=== PATIENT | male | born 1960 | race Caucasian/White ===

== ENCOUNTER 2020-06-29 13:05 | Outpatient (CLI) | payer BC, SELFPAY | END 2020-06-29 13:06 | disposition home or self-care (01) | LOC: ANHCOVIDVC 13:05 | PROVIDERS: PCP Family Medicine | DX: Z23 Encounter for immunization (principal) | CPT/HCPCS: 0001A; 91300 ==

== ENCOUNTER 2020-07-20 13:07 | Outpatient (CLI) | payer BC, SELFPAY | END 2020-07-20 13:08 | disposition home or self-care (01) | LOC: ANHCOVIDVC 13:07 | PROVIDERS: PCP Family Medicine | DX: Z23 Encounter for immunization (principal) | CPT/HCPCS: 0002A; 91300 ==

== ENCOUNTER → 2020-09-17 03:55 | Outpatient (CLI) | payer BC, SELFPAY ==
[2020-09-17 19:46] LABS: SARS-CoV-2 RNA PCR Negative
== END ==
PROVIDERS: PCP Family Medicine; Visit Provider Internal Medicine Gastroenterology
DX: Z01.812 Encounter for preprocedural laboratory examination (principal); Z20.822 Contact with and (suspected) exposure to COVID-19
CPT/HCPCS: C9803; U0003; U0005

== ENCOUNTER 2020-09-21 01:48 | Day surgery (SDC) | payer BC, SELFPAY ==
[2020-09-14 13:52] VITALS: BMI 21.2
[2020-09-21 08:51] VITALS: BP 128/80; PULSE 84; RESP 18; TEMP 36; O2SAT 99; BMI 22.9
[2020-09-21 09:24] LABS: Glucose Point of Care 218 mg/dl (65-105)
--- NOTE | 2020-09-21 09:24 | WPDANESEPPF ---
Anes - Initial Pre Proc Eval Procedure: Operation Date: 09/21/20 09:30 Proposed Procedures p Esophagogastroduodenoscopy - Pepe Rodriguez MD Date/Time: 09/21/20 09:24 Surgeon: Pepe Rodriguez MD Pre Op Diagnosis: dyshagia, esophageal obstruction Patient Data Age: 60 Gender: M Height: 6 ft 2 in Weight: 81.2 kg Last Vital Signs Temp 96.8 F L 09/21/20 08:51 Pulse 84 09/21/20 08:51 Resp 18 09/21/20 08:51 BP 128/80 09/21/20 08:51 Pulse Ox 99 09/21/20 08:51 Allergies Allergy/AdvReac Type Severity Reaction Status Date / Time No Known Allergies Allergy Verified 09/21/20 08:50 Home Medications Medication Instructions Recorded Confirmed Type insulin degludec 100 unit/mL (3 26 unit SUBCUT DAILY #15 ml 06/22/20 09/21/20 Rx mL) subcutaneous pen lisinopril 2.5 mg tablet 2.5 mg PO DAILY #90 tablet 06/23/20 09/21/20 Rx pen needle, diabetic 32 gauge x #100 ea 06/28/20 09/05/20 Rx 1/4 atorvastatin 10 mg tablet 10 mg PO QHS #90 tablet 08/08/20 09/21/20 Rx flash glucose sensor See Rx Instructions .ROUTE 08/08/20 09/21/20 Rx .COMPLEX #13 ea cyanocobalamin (vitamin B-12) 500 500 mcg PO DAILY 09/05/20 09/21/20 History mcg tablet Patient hx anesthesia problems: none Family hx anesthesia problems: none PMFSH Past Medical History Medical History (Updated 09/05/20 @ 11:25 by Lambert Su MD) Collar bone fracture (~1973) Diabetic nephropathy Mixed hyperlipidemia Neuropathy Peripheral neuropathy Surgical History Surgical History History of hip replacement (~2005) right Family History Family History Father Diabetes mellitus Cerebrovascular accident Sibling Diabetes mellitus Family history of cardiovascular disease Acute myocardial infarction Family history of kidney disease Mother Family history of cardiovascular disease Grandparent Family history of Alzheimer's disease Social History Social History Alcohol intake: current Drinks per week: 6 Living arrangements: with family Gender identity (if verbalized by the patient): Female Spiritual care concerns: No Anes - Eval Final PreProcedure Day of Procedure 09/21/20 09:24 Patient weight: normal Heart: regular rate and rhythm Lungs: clear to auscultation Airway: Mallampati scale class II Neurological: alert and oriented Last oral intake: >/= 8 hours ASA classification: III Emergent: no Anesthetic plan: proceed Anesthesia type and monitoring: general GIVS and standard monitoring Informed Consent: The patient's anesthetic plan and its attendant risks and benefits were discussed with the patient/family/POA. Questions were solicited and answers provided to the satisfaction of the patient/family/POA.
[2020-09-21] MEDS: LACTATED RINGERS 1,000 ML 150 ML IV CONT (09:25)
--- NOTE | 2020-09-21 09:46 | PM.HPGS ---
History of Present Illness History of Present Illness Consent: Risks, benefits, and alternatives have been discussed and questions answered. Patient agrees to proceed with procedure. Chief complaint: dyshagia, esophageal obstruction Narrative: Facnudo Sheikh is a 60 year old male who frequently has episodes of dysphagia. When he is swallowing his feels as though the food is going down slowly. This then results in coughing which can last for quite a while. He denies symptoms suggesting impaction of food. For instance he can take a drink of water and it will go down. His symptoms are brought on by both liquid and solid food Review of Systems Review of Systems: All systems reviewed & are unremarkable except as noted in HPI and below PMFSH Past Medical History Medical History Collar bone fracture (~1973) Diabetic nephropathy Mixed hyperlipidemia Neuropathy Peripheral neuropathy Surgical History Surgical History History of hip replacement (~2005) right Family History Family History Father Diabetes mellitus Cerebrovascular accident Sibling Diabetes mellitus Family history of cardiovascular disease Acute myocardial infarction Family history of kidney disease Mother Family history of cardiovascular disease Grandparent Family history of Alzheimer's disease Social History Social History Alcohol intake: current Drinks per week: 6 Living arrangements: with family Gender identity (if verbalized by the patient): Female Spiritual care concerns: No Meds Home Medications and Allergies Home Medications Medication Instructions Recorded Confirmed Type insulin degludec 100 unit/mL (3 26 unit SUBCUT DAILY #15 ml 06/22/20 09/21/20 Rx mL) subcutaneous pen lisinopril 2.5 mg tablet 2.5 mg PO DAILY #90 tablet 06/23/20 09/21/20 Rx pen needle, diabetic 32 gauge x #100 ea 06/28/20 09/05/20 Rx 1/4 atorvastatin 10 mg tablet 10 mg PO QHS #90 tablet 08/08/20 09/21/20 Rx flash glucose sensor See Rx Instructions .ROUTE 08/08/20 09/21/20 Rx .COMPLEX #13 ea cyanocobalamin (vitamin B-12) 500 500 mcg PO DAILY 09/05/20 09/21/20 History mcg tablet Allergies Allergy/AdvReac Type Severity Reaction Status Date / Time No Known Allergies Allergy Verified 09/21/20 08:50 Vital Signs Vital Signs - 24 hr 09/21/20 08:51 Temperature 36.0 C L Pulse Rate 84 Respiratory Rate 18 Blood Pressure 128/80 Pulse Oximetry 99 Exam Const: General: alert Orientation/consciousness: patient oriented x3 Resp: Auscultation: clear to auscultation bilaterally Cardio: Rhythm: regular rhythm GI: GI Palp: Yes Soft to palpation and No Tenderness to palpation present (GI) Neuro: General: patient oriented x3 Assessment and Plan Assessment and plan (1) Dysphagia: Code(s): R13.10 - Dysphagia, unspecified Status: Acute Assessment and Plan: EGD with possible biopsy or dilatation or cautery.
[2020-09-21 10:30] VITALS: BP 112/68; PULSE 84; RESP 18; O2SAT 98
[2020-09-21 10:40] VITALS: BP 114/76; PULSE 82; RESP 18; O2SAT 92
[2020-09-21 10:49] LABS: Glucose Point of Care 211 mg/dl (65-105)
[2020-09-21 10:50] VITALS: BP 132/86; PULSE 81; RESP 18; O2SAT 92
== END 2020-09-21 11:03 | disposition home or self-care (01) ==
PROVIDERS: PCP Family Medicine; Visit Provider Internal Medicine Gastroenterology
PROC: 0DJ08ZZ Inspection of Upper Intestinal Tract, Via Natural or Artificial Opening Endoscopic (ICD-10-PCS; CPT 43235; principal; 2020-09-21 09:30)
DX: K22.2 Esophageal obstruction (principal); K20.90 Esophagitis, unspecified without bleeding; E11.21 Type 2 diabetes mellitus with diabetic nephropathy; E78.2 Mixed hyperlipidemia; E11.42 Type 2 diabetes mellitus with diabetic polyneuropathy; Z79.4 Long term (current) use of insulin
CPT/HCPCS: 43239; 43249; 82948; 87081; 88305; C1726; J2704; J7120

== ENCOUNTER 2020-10-09 10:59 | Emergency (ER) | payer BC, SELFPAY ==
--- NOTE | ~2020-10-09 | XR_ITS ---
EXAMINATION: XR chest 2V DATE: 10/09/2020 11:42 INDICATION: Dry cough TECHNIQUE: PA and lateral views of the chest are obtained. COMPARISON: 05/25/2018 FINDINGS: There are subtle airspace opacities of the right lower lobe. There is no pleural effusion o r pneumothorax. The cardiomediastinal silhouette is normal. There is mild thoracic spondylosis. IMPRESSION: 1. Subtle airspace opacities of the right lower lobe, consistent with atelectasis versus pneumonia. Reviewed, dictated and finalized at location A. IMPRESSION: 1. Subtle airspace opacities of the right lower lobe, consistent with atelectas is versus pneumonia.
[2020-10-09 11:07] VITALS: BP 148/86; PULSE 80; RESP 16; TEMP 36.4; O2SAT 100
--- NOTE | 2020-10-09 11:24 | ED.GENADULT ---
HPI - General Adult General Chief complaint: Upper Respiratory Infection Stated complaint: cough Time Seen by Provider: 10/09/20 11:24 Source: patient and RN notes reviewed Mode of arrival: ambulatory Limitations: no limitations History of Present Illness HPI narrative: 60-year-old male presents with complaints of dry cough for the past 14 days. Facundo reports constant cough increasing daily after having an endoscopy done approximately 2 weeks ago. Cold and cough tablets without relief. ?Constant dry cough without chest congestion. No rhinorrhea or nasal congestion. ?Denies sore throat. ?No high fevers, drooling, neck or throat swelling. ?No chest pain, wheezing, or shortness of breath. No exacerbation factors. Denies nausea, vomiting, and abdominal pain. ?Tolerating liquids well. Remains active. ?The patient reports he has not been diagnosed with COVID-19. The patient reports he received 2 [employer] COVID-19 vaccines. The patient reports he is not waiting for the results of a COVID-19 lab test. The patient reports he does not have chills, weakness, or fatigue. ?The patient reports he does not have a worsening cough. The patient reports he does not have any loss of taste or smell and diarrhea. ?Denies recent traveling. ?Denies concerns for COVID-19 or exposures. ?At this time, the patient is not suspected of having COVID-19. Some parts of this dictation were generated by voice recognition software and may contain typographical and/or grammatical inaccuracies. Related Data Home Medications Medication Instructions Recorded Confirmed cyanocobalamin (vitamin B-12) 500 500 mcg PO DAILY 09/05/20 10/09/20 mcg tablet Allergies Allergy/AdvReac Type Severity Reaction Status Date / Time No Known Allergies Allergy Verified 09/21/20 08:50 Review of Systems Review of Systems: Narrative: CONSTITUTIONAL: Denies fever, chills, sweats. EYES: Denies visual changes, redness, discharge. ENT: Denies rhinorrhea, congestion, sore throat, otalgia. CARDIOVASCULAR: Denies chest pain, palpitations, edema. RESPIRATORY: Denies dyspnea, wheezing. Complaints of constant dry cough. GASTROINTESTINAL: Denies abdominal pain, nausea, vomiting, diarrhea. SKIN: Denies rash or itching. MUSCULOSKELETAL: Denies acute back pain, joint pain, or myalgia. NEUROLOGIC: Denies numbness or focal weakness. PSYCHIATRIC: Denies anxiety or depression. All systems reviewed & are unremarkable except as noted in HPI and below. [facility] Past Medical History Medical History Collar bone fracture (~1973) Diabetic nephropathy History of esophageal dilatation Mixed hyperlipidemia Neuropathy Peripheral neuropathy Schatzki's ring of distal esophagus Surgical History Surgical History History of esophagogastroduodenoscopy History of hip replacement (~2005) right Family History Family History Father Diabetes mellitus Cerebrovascular accident Sibling Diabetes mellitus Family history of cardiovascular disease Acute myocardial infarction Family history of kidney disease Mother Family history of cardiovascular disease Grandparent Family history of Alzheimer's disease Social History Social History (Updated 10/09/20 @ 11:34 by PITO Whyte) Smoking status: Never smoker Tobacco type: cigarettes Second hand tobacco smoke exposure: No Alcohol intake: current Drinks per week: 6 Substance use: never Living arrangements: with family Occupation/Education: occupation Gender identity (if verbalized by the patient): Male Sexual Orientation (if Verbalized by the Patient): Straight or Heterosexual Spiritual care concerns: No Comments At time of signature, agree with the nurse past medical, surgical, social, and family history. There is no relevant family histor
== END 2020-10-09 12:23 | disposition home or self-care (01) ==
PROVIDERS: Emergency Provider Nurse Practitioner Family; PCP Family Medicine
DX: J18.1 Lobar pneumonia, unspecified organism (principal); E78.2 Mixed hyperlipidemia; E11.21 Type 2 diabetes mellitus with diabetic nephropathy; E11.42 Type 2 diabetes mellitus with diabetic polyneuropathy; Z96.641 Presence of right artificial hip joint
CPT/HCPCS: 71046; 99213; G0463

== ENCOUNTER 2021-06-21 14:24 | Outpatient (CLI) | payer BC, SELFPAY ==
--- NOTE | ~2021-06-21 | MR_ITS ---
EXAMINATION: MR cervical spine wo con DATE: 06/21/2021 16:09 INDICATION: Other specified diseases of spinal cord. Bilateral hand tingling and numbness. TECHNIQUE: Magnetic resonance imaging (MRI) of the cervical spine was performed without intravenous c ontrast. Sequences included sagittal T2-weighted FSE, sagittal STIR FSE, sagittal T1-weighted FSE, ax ial MERGE, and axial T2-weighted FSE. COMPARISON: Cervical spine MRI 07/08/2018 FINDINGS: There is 2 mm additional listhesis of C5 on C6. There is 7 degrees levocurvature of cervica l spine. There is a chronic compression fracture of T3 with 1/5 loss of height. There is severely dec reased disc height at C5-C6 and C6-C7 with endplate remodeling. There is increased T2-weighted signal intensity in the spinal cord at C5-C6, consistent with myelomalacia. The following disc levels are s pecifically discussed: C2-C3: The disc does not extend beyond the endplate margin. There is no uncovertebral joint osteoarth ritis. There is no facet joint osteoarthritis. There is no neural foraminal stenosis. There is no darshan tral canal stenosis. C3-C4: There is a central protrusion. There is no uncovertebral joint osteoarthritis. There is no fac et joint osteoarthritis. There is no neural foraminal stenosis. There is no central canal stenosis. C4-C5: There is a central protrusion. There is mild right uncovertebral joint osteoarthritis. There i s no facet joint osteoarthritis. There is mild right neural foraminal stenosis. There is mild central canal stenosis. C5-C6: The disc is bulging. There is severe bilateral uncovertebral joint osteoarthritis. There is mi ld bilateral facet joint osteoarthritis. There is moderate bilateral neural foraminal stenosis. There is severe central canal stenosis. C6-C7: The disc is bulging. There is severe bilateral uncovertebral joint osteoarthritis. There is se peace bilateral facet joint osteoarthritis. There is moderate bilateral neural foraminal stenosis. The re is moderate central canal stenosis. C7-T1: The disc does not extend beyond the endplate margin. There is no uncovertebral joint osteoarth ritis. There is mild bilateral facet joint osteoarthritis. There is no neural foraminal stenosis. The re is no central canal stenosis. IMPRESSION: 1. Myelomalacia at C5-C6 again seen. 2. Severe cervical spondylosis, stable from 07/08/2018. Reviewed, dictated and finalized at location A. CH LANGUAGE PATHOLOGY ASSISTANT
--- NOTE | ~2021-06-21 | MR_ITS ---
EXAMINATION: MR brain/brain stem wo con DATE: 06/21/2021 15:55 INDICATION: Bilateral hand tingling and numbness. Repeated falls. Other specified diseases of spinal cord. Dizziness. TECHNIQUE: Magnetic resonance imaging (MRI) of the brain and brainstem was performed without intraven ous contrast. Sequences included sagittal and axial T1-weighted FSE, axial diffusion-weighted FS EPI, axial T2*-weighted GRE, axial T2-weighted FLAIR Propeller, and axial T2-weighted Propeller. Apparent diffusion coefficient (ADC) maps were created. COMPARISON: Brain MRI 05/26/2018, head CT 05/25/2018 FINDINGS: There are scattered areas of nonspecific increased T2-weighted signal intensity in the cere bral white matter, which is within normal limits for the patient's age. There is no intracranial hemo rrhage, acute infarction, or abnormal intracranial mass lesion. The ventricles are normal in size. Th ere is mild mucosal thickening in the paranasal sinuses. The orbits are normal. The mastoid air cells are normal. IMPRESSION: 1. Normal brain. Reviewed, dictated and finalized at location A. RITY BUSINESS ANALYST IMPRESSION: 1. Normal brain.
== END 2021-06-21 14:25 ==
LOC: MICIMG 14:25
PROVIDERS: PCP Family Medicine; Visit Provider Family Medicine
DX: R29.6 Repeated falls (principal); G95.89 Other specified diseases of spinal cord; R29.898 Other symptoms and signs involving the musculoskeletal system; M47.812 Spondylosis without myelopathy or radiculopathy, cervical region
CPT/HCPCS: 70551; 72141

== ENCOUNTER → 2021-10-12 07:39 | Outpatient (CLI) | payer BC, SELFPAY ==
--- NOTE | ~2021-10-12 | XR_ITS ---
XR_[id number]_CR DATE: 10/12/2021 07:53 INDICATION: Postoperative visit; cervical stenosis TECHNIQUE: AP, lateral and swimmer views COMPARISON: 06/21/2021 MR cervical spine FINDINGS: Status post anterior and interbody surgical fusion at C5-7. There is osteopenia. There is approximately 17 degrees levoscoliosis measured from C3 to T4. Normal alignment of the cervical spine. No fracture or dislocation or locked facet or prevertebral so ft tissue swelling is detected. C2-3, C5-3-4 and C4-5 interspaces are well preserved. IMPRESSION: Status post anterior and interbody spinal fusion at C-7 Approximately 17 degrees levoscoliosis from C3 to T4 Osteopenia Reviewed, dictated and finalized at Location A. Reviewed, dictated and finalized at location A.
== END ==
PROVIDERS: PCP Family Medicine
DX: Z48.89 Encounter for other specified surgical aftercare (principal); M48.02 Spinal stenosis, cervical region; Z98.1 Arthrodesis status; M41.82 Other forms of scoliosis, cervical region; M85.88 Other specified disorders of bone density and structure, other site
CPT/HCPCS: 72040

== ENCOUNTER → 2023-05-15 13:36 | Outpatient (CLI) | payer BC, SELFPAY ==
--- NOTE | ~2023-05-15 | XR_ITS ---
AP and lateral views of the right femur Clinical History: Pain Findings: No acute fracture or dislocation is seen. Right hip arthroplasty in place. No hardware comp lication seen. Joint spaces of the right knee are intact. Soft tissues are unremarkable. Impression: No acute abnormality. Right hip arthroplasty in place. Reviewed, dictated and finalized at location . WASH SUPERVISOR Impression: No acute abnormality. Right hip arthroplasty in place.
--- NOTE | ~2023-05-15 | XR_ITS ---
AP view of the pelvis and AP and lateral views of the right hip Clinical history: Pain Findings: No acute fracture or dislocation is seen. Right hip arthroplasty in place. No hardware comp lication seen. Left hip joint space is preserved. Soft tissues are unremarkable. Impression: No acute abnormality. Right hip arthroplasty in place. Reviewed, dictated and finalized at location . OR TAX MANAGER Impression: No acute abnormality. Right hip arthroplasty in place.
== END ==
PROVIDERS: PCP Family Medicine; Visit Provider Family Medicine
DX: S79.911A Unspecified injury of right hip, initial encounter (principal); Z96.641 Presence of right artificial hip joint
CPT/HCPCS: 73502; 73552

== ENCOUNTER 2024-03-25 06:33 | Emergency (ER) | payer BC, SELFPAY ==
[2024-03-25] VITALS (13 sets, daily range): BP systolic 149–172; BP diastolic 97–108; PULSE 95–105; RESP 13–18; TEMP 36.6; O2SAT 90–98
--- NOTE | ~2024-03-25 | CT_ITS ---
CT of the Abdomen and Pelvis: Indication: Abdominal pain Technique: 2.5 mm axial scans were obtained through the abdomen and pelvis following intravenous adm inistration of 100 cc of Omnipaque 350. Dose reduction technique was used on this scan by utilizing a utomated exposure control and iterative reconstruction technique. The dose-length product (DLP) was 3 39.89 mGy-cm. Findings: Scans through the lung bases are unremarkable. The liver, spleen, pancreas, gallbladder, adrenals and kidneys are within normal limits.. There are a therosclerotic calcifications of the aorta. No lymphadenopathy. No bowel obstruction or bowel wall thickening. There is no evidence to suggest acute appendicitis. Images through the pelvis were performed. Urinary bladder unremarkable. No pelvic mass seen. No ascit es. Right hip arthroplasty noted. Impression: No acute abnormalities seen. Reviewed, dictated and finalized at [facility]. TEACHER Impression: No acute abnormalities seen.
[2024-03-25 06:45] LABS: Glucose Point of Care 252 mg/dl (65-105)
--- NOTE | 2024-03-25 06:52 | ECG_ITS ---
Test Date: 2024-03-25 06:59:07 Measurements Intervals [place] Rate: 93 P: 21 MO: 178 QRS: -21 QRSD: 84 T: -15 QT: 362 QTc: 452 Interpretive Statements SINUS RHYTHM INFERIOR MYOCARDIAL INFARCTION , OF INDETERMINATE AGE [40+ ms Q WAVE AND/OR ST/T ABNORMALITY IN II/aVF] ABNORMAL ECG No previous ECG available for comparison Electronically Signed On 03-25-2024 10:58:54 ESCROW AGENT by Anupam Hernandez M.D.
[2024-03-25 06:59] LABS: Basophils Percent Auto 0.1 % (0.2-1.2); Eosinophils Percent Auto 0.1 % (0-4.4); Hematocrit 42.6 % (42.0-52.0); Immature Granulocyte Absolute 0.03 K/mm3 (0.00-0.031); Immature Granulocyte Percent A 0.3 % (0-0.5); Lymphocytes Absolute Auto 2.13 K/mm3 (0.9-3.2); Lymphocytes Percent Auto 23.4 % (18.3-44.2); Mean Corpuscular HGB Conc 32.9 g/dl (32-36); Mean Corpuscular Hemoglobin 31.7 pg (26-34); Mean Corpuscular Volume 96.6 fl (80-100); Monocytes Absolute Auto 0.9 K/mm3 (0.1-0.6); Monocytes Percent Auto 10.1 % (2.6-8.5); Platelet Count Result 219 k/mm3 (150-375); Red Blood Count 4.41 M/mm3 (4.6-6.20); Red Cell Distribution Width 12.1 % (11.5-14.5); White Blood Count 9.1 K/mm3 (4.5-10.0)
[2024-03-25] MEDS: SODIUM CHLORIDE 0.9% IV 1,000 ML 999 ML IV CONT ×2 (07:02→09:03)
[2024-03-25 07:11] LABS: Alanine Aminotransferase 24 U/L (6-50); Albumin Level 4.6 g/dL (3.5-5.1); Alkaline Phosphatase 95 U/L (38-126); Anion Gap 7 mmol/L (4-12); Aspartate Amino Transferase 58 U/L (17-59); Bilirubin,Total 0.8 mg/dL (0.2-1.3); Blood Urea Nitrogen 47 mg/dL (9-20); Carbon Dioxide 31 mmol/L (22-30); Chloride 97 mmol/L (98-107); Estimated CRCL calculation 52 ml/min; Estimated Glomerular Filt Rate 47; Glucose 271 mg/dL (65-110); Lipase 77 U/L (23-300); Potassium 4.6 mmol/L (3.4-5.0); Sodium 135 mmol/L (137-145)
--- NOTE | 2024-03-25 07:15 | ED.GENADULT ---
HPI - General Adult General Chief complaint: Abdominal Pain Stated complaint: N/V and ABD pain for 3 days Time Seen by Provider: 03/25/24 06:52 History of Present Illness HPI narrative: 63-year-old male present to the emergency department for evaluation for persistent nausea and vomiting that is been going on since Saturday. Patient reports symptoms started on Saturday but yesterday he only had an episode of emesis but patient does report persistent decreased p.o. intake. Patient denies any significant abdominal pain but does report abdominal cramping. Patient denies any prior history of GI bleed. Patient does report a history of frequent alcohol consumption but denies any prior history of alcohol withdrawal. Patient denies any history of urinary retention Related Data Home Medications Medication Instructions Recorded Confirmed cyanocobalamin (vitamin B-12) 500 500 mcg PO DAILY 09/05/20 12/08/21 mcg tablet Allergies Allergy/AdvReac Type Severity Reaction Status Date / Time No Known Allergies Allergy Verified 03/25/24 06:33 Review of Systems Review of Systems: All systems reviewed & are unremarkable except as noted in HPI and below PMFSH Past Medical History Medical History Collar bone fracture (~1973) Diabetic nephropathy History of esophageal dilatation Mixed hyperlipidemia Neuropathy Peripheral neuropathy Schatzki's ring of distal esophagus [place] syncope Surgical History Surgical History History of esophagogastroduodenoscopy History of hip replacement (~2005) right S/P cervical spinal fusion Family History Family History Father Diabetes mellitus Cerebrovascular accident Sibling Diabetes mellitus Family history of cardiovascular disease Acute myocardial infarction Family history of kidney disease Mother Family history of cardiovascular disease Grandparent Family history of Alzheimer's disease Social History Social History Smoking status: Former smoker Second hand tobacco smoke exposure: No Alcohol intake: current Drinks per week: 6 Substance use: never Substance use type: does not use Lack of Transportation: No Lack of Food: Never True Current Housing: I Have Housing Concerned About Future Housing: No Difficulty Paying Gas/Electric Bills: No Difficulty Paying for Meds: No Currently Unemployed: No Education: High School Diploma/GED Difficulty w/ Childcare or Family Care: No Living arrangements: with family Occupation/Education: occupation Gender identity (if verbalized by the patient): Male Sexual Orientation (if Verbalized by the Patient): Straight or Heterosexual Spiritual care concerns: No Agree to blood products: Yes Exam Narrative: APPEARANCE: Well appearing, no pain, no distress, well-nourished. HEAD: normocephalic, atraumatic. EYES: PERRLA/EOMI, conjunctivae clear. NOSE: Normal no drainage EARS:TMS clear with good light reflex. THROAT: Pharynx clear, no exudate. NECK: Supple. No adenopathy, no masses. RESPIRATORY: Airway patent, respirations nonlabored. Clear to auscultation bilaterally, no rales, rhonchi, wheezing. CARDIOVASCULAR: Regular rate and rhythm without murmurs rubs or gallops. ABDOMINAL: Soft, nontender, nondistended, normal bowel sounds MUSCULOSKELETAL: Moves all extremities. Strength/ROM intact, No edema, No calf tenderness. NEURO: Alert. Cranial nerves II through XII intact. Grossly intact SKIN: Warm, dry. Normal Color Course Vital Signs Vital signs: Vital Signs Temperature 97.9 F 03/25/24 06:43 Pulse Rate 95 03/25/24 06:43 Respiratory Rate 16 03/25/24 06:43 Blood Pressure 172/108 H 03/25/24 06:43 Pulse Oximetry 98 03/25/24 06:43 Oxygen Delivery Room Air 03/25/24 06:43 Temperature 97.9 F 03/25/24 06:43 Pulse Rate 103 H 03/25/24 11:31 Respiratory Rate 18 03/25/24 11:31 Blood Pressure 161/98 H 03/25/24 11:31 Pulse Oximetry 94 03/25/24 11:31 Oxygen Delivery Room Air 03/25/24 06:43 Medical Decision Making MDM Narrative Medical decision making narrative: 63 old male presents emergency department for evaluation for nausea vomiting, decreased p.o. intake and generalized weakness. Patient is afebrile with no leukocytosis hemoglobin of 14. Patient did have an elevated creatinine of 1.5 which is higher than his typical baseline. No other significant abnormalities on the CMP UA was negative for infection. CT scan showed no acute abdominal abnormalities. Patient had greater than 500 mL of retained urine his bladder scan. Wayne was placed and UA was negative for infection. Patient prefers not to have the Wayne catheter at time of discharge. Differential Diagnosis Differential Diagnosis: Colitis, diverticulitis, gastritis, dehydration, appendicitis, urinary retention, urinary tract infection Vital Signs Vital Signs: Vital Signs Temperature 97.9 F 03/25/24 06:43 Pulse Rate 95 03/25/24 06:43 Respiratory Rate 16 03/25/24 06:43 Blood Pressure 172/108 H 03/25/24 06:43 Pulse Oximetry 98 03/25/24 06:43 Oxygen Delivery Room Air 03/25/24 06:43 Temperature 97.9 F 03/25/24 06:43 Pulse Rate 103 H 03/25/24 11:31 Respiratory Rate 18 03/25/24 11:31 Blood Pressure 161/98 H 03/25/24 11:31 Pulse Oximetry 94 03/25/24 11:31 Oxygen Delivery Room Air 03/25/24 06:43 Lab Data Lab results reviewed: Yes I reviewed the patient's lab results. 03/25/24 06:51 03/25/24 06:51 Labs: Lab Results 03/25/24 03/25/24 03/25/24 Range/Units 06:42 06:51 09:02 WBC 9.1 (4.5-10.0) K/mm3 RBC 4.41 L (4.6-6.20) M/mm3 Hgb 14.0 (14.0-18.0) g/dL Hct 42.6 (42.0-52.0) % MCV 96.6 (80-100) fl MCH 31.7 (26-34) pg MCHC 32.9 (32-36) g/dl RDW 12.1 (11.5-14.5) % Plt Count 219 (150-375) k/mm3 MPV 10.0 (7.4-10.4) fl Immature Gran % (Auto) 0.3 (0-0.5) % Neut % (Auto) 66.0 (45.5-73.1) % Lymph % (Auto) 23.4 (18.3-44.2) % [place] % (Auto) 10.1 H (2.6-8.5) % Eos % (Auto) 0.1 (0-4.4) % Baso % (Auto) 0.1 L (0.2-1.2) % Lymph # (Auto) 2.13 (0.9-3.2) K/mm3 [place] # (Auto) 0.9 H (0.1-0.6) K/mm3 Eos # (Auto) 0.0 (0-0.3) K/mm3 Baso # (Auto) 0.0 (0.0-0.1) K/mm3 Abs Immat Gran (auto) 0.03 (0.00-0.031) K/mm3 Absolute Neuts (auto) 6.0 (1.3-6.7) K/mm3 Absolute Nucleated RBC 0.000 (0.0-0.012) K/mm3 Nucleated RBC % 0.0 (0.0-0.2) % Sodium 135 L (137-145) mmol/L Potassium 4.6 (3.4-5.0) mmol/L Chloride 97 L (98-107) mmol/L Carbon Dioxide 31 H (22-30) mmol/L Anion Gap 7 (4-12) mmol/L BUN 47 H (9-20) mg/dL Creatinine 1.50 H (0.7-1.3) mg/dL Estim Creat Clear Calc 52 ml/min Estimated GFR 47 L (59 - ) Glucose 271 H (65-110) mg/dL POC Capillary Glucose 252 H (65-105) mg/dl Calcium 10.0 (8.4-10.2) mg/dL Total Bilirubin 0.8 (0.2-1.3) mg/dL AST 58 (17-59) U/L ALT 24 (6-50) U/L Alkaline Phosphatase 95 (38-126) U/L Total Protein 8.0 (6.3-8.2) g/dL Albumin 4.6 (3.5-5.1) g/dL Lipase 77 (23-300) U/L Urine Color Yellow (Yellow) Urine Appearance Clear (Clear) Urine pH 5.0 (5.0-9.0) Ur Specific [place] 1.038 H (1.001-1.035) Urine Protein 2+ H (Negative) mg/dL Urine Glucose (UA) 3+ H (Negative) mg/dL Urine Ketones 2+ H (Negative) mg/dL Ur Blood (Man) 1+ H (Negative) Urine Nitrate Negative (Negative) Urine Bilirubin Negative (Negative) Urine Urobilinogen 0.2 (<2.0) mg/dL Leukocyte Esterase Rfl Negative (Negative) SIERRA/UL Urine RBC 6-10 H (0-2) /hpf Urine WBC 0-5 (0-3) /hpf Ur Squamous Epith Cells None seen (Few) /hpf Urine Bacteria None seen /hpf Urine Casts 0-2 Imaging Data Radiologist's impression: Impressions Abdomen/Pelvis CT 03/25/24 07:46 Impression: No acute abnormalities seen. ECG Data EKG #1: EKG Interpretation: normal rate, sinus rhythm, no ectopy, non-specific ST changes, normal QRS, normal QT and NL axis Discharge Plan Discharge Clinical Impression: Nausea & vomiting Patient Disposition: Home, Self-Care Condition: Stable Instructions: Antibiotic Form, Clear Liquid Diet (ED), Abdominal Pain (ED) Additional Instructions: Zofran as needed for nausea control. Clear liquid diet for the next 1-3 days. Advance to bland diet as tolerated. Have close follow-up with your primary care physician. Also recommend close follow-up with urology regarding your urinary retention. If you have any worsening symptoms then please call or return to the emergency Prescriptions: New ondansetron 4 mg tablet,disintegrating 4 mg PO Q8H PRN (Reason: nausea and vomiting) Qty: 14 0RF No Action cyanocobalamin (vitamin B-12) 500 mcg tablet 500 mcg PO DAILY Trelegy Ellipta 100-62.5-25 mcg blister with device 1 inh inhalation DAILY Qty: 60 5RF atorvastatin 10 mg tablet 10 mg PO QHS Qty: 90 3RF insulin lispro [Humalog KwikPen Insulin] 100 unit/mL insulin pen 5 unit subcut .ac Qty: 15 3RF (DME) pen needle, diabetic [Novofine 32] 32 gauge x 1/4 needle See Rx Instructions .ROUTE .MEDSUPPLY Qty: 100 3RF Rx Instructions: As directed pen needle, diabetic [BD Ultra-Fine Sabine Pen Needle] 32 gauge x 5/32 needle See Rx Instructions miscellaneous .COMPLEX Qty: 100 0RF Rx Instructions: as directed; FreeStyle Rodriguez 14 Day Sensor Kit See Rx Instructions .ROUTE .COMPLEX Qty: 13 3RF Dose Instruction: USE 1 SENSOR EVERY 14 DAYS TO CHECK BLOOD SUGAR Rx Instructions: USE 1 SENSOR EVERY 14 DAYS TO CHECK BLOOD SUGAR Tresiba FlexTouch U-100 100 unit/mL (3 mL) insulin pen 28 unit subcut DAILY 90 Days Qty: 25.2 3RF Jardiance 10 mg tablet See Rx Instructions .ROUTE .COMPLEX Qty: 90 1RF Dose Instruction: TAKE 1 TABLET DAILY Rx Instructions: TAKE 1 TABLET DAILY omeprazole 40 mg capsule,delayed release(DR/EC) See Rx Instructions .ROUTE .COMPLEX Qty: 90 1RF Dose Instruction: TAKE 1 CAPSULE BY MOUTH DAILY Rx Instructions: TAKE 1 CAPSULE BY MOUTH DAILY lisinopril 2.5 mg tablet 2.5 mg PO DAILY Qty: 90 3RF ondansetron 4 mg tablet,disintegrating 4 mg PO Q8H PRN (Reason: nausea and vomiting) Qty: 20 0RF Follow-up/Referrals: Lambert Su MD [Primary Care Provider] -
[2024-03-25] MEDS: METOCLOPRAMIDE HCL INJ 10 MG/2 ML VIAL IV PUSH (07:19)
[2024-03-25 09:13] LABS: Add Urine Microscopic? YES; Appearance Urine Clear (Clear); Bacteria Urine None Seen /hpf; Bilirubin Urine Negative (Negative); Blood Urine 1+ (Negative); Color Urine Yellow (Yellow); Glucose Urine UA 3+ mg/dL (Negative); Ketones Urine 2+ mg/dL (Negative); Leukocyte Esterase Ur Negative LEU/UL (Negative); Nitrate Urine Negative (Negative); Non Pathogenic Casts 0-2; Protein Urine 2+ mg/dL (Negative); Specific Grav Ur 1.038 (1.001-1.035); Squamous Epithelial Cell Urine None Seen /hpf (Few); Urobilinogen Urine 0.2 mg/dL (<2.0); WBC Urine 0-5 /hpf (0-3)
[2024-03-25] MEDS: ONDANSETRON INJ 4 MG/2 ML VIAL IV PUSH (10:35)
[2024-03-25] MEDS: FAMOTIDINE 20 MG/2 ML VIAL IV PUSH (10:35)
[2024-03-25] MEDS: PANTOPRAZOLE SODIUM IV 40 MG VIAL IV PUSH (10:35)
== END 2024-03-25 12:11 | disposition home or self-care (01) ==
PROVIDERS: Emergency Medicine; Emergency Provider Emergency Medicine; PCP Family Medicine
DX: R11.2 Nausea with vomiting, unspecified (principal); E78.2 Mixed hyperlipidemia; E11.42 Type 2 diabetes mellitus with diabetic polyneuropathy; E11.21 Type 2 diabetes mellitus with diabetic nephropathy; Z96.641 Presence of right artificial hip joint; Z98.1 Arthrodesis status; Z87.891 Personal history of nicotine dependence; R94.31 Abnormal electrocardiogram [ECG] [EKG]; Z79.4 Long term (current) use of insulin; Z79.84 Long term (current) use of oral hypoglycemic drugs; Z79.899 Other long term (current) drug therapy
CPT/HCPCS: 36415; 51702; 74177; 80053; 81001; 82948; 83690; 85025; 93005; 96361; 96374; 96375; 99284; J2405; J2470; J2765; J7030; Q9967

== ENCOUNTER 2024-11-11 12:54 | Outpatient (CLI) | payer MEDICARE, SELFPAY ==
--- OUTSIDE RECORDS SUMMARY | 2024-11-11 13:01 | XMS_ITS | Clinical Summary ---
Author Organization [facility] Address [address] [place] [address] Phone Care Team Providers Care Handle Attacher Name Role Phone Lambert Su MD Primary Care Provider [phone] Allergies No known active allergies Medications atorvastatin (LIPITOR) 10 mg tablet Take 10 mg by mouth daily. Active lisinopriL (PRINIVIL) 2.5 mg tablet Take 2.5 mg by mouth daily. AM Active cyanocobalamin 1,000 mcg Tablet Take 1,000 mcg by mouth daily. Active fluticasone-ume clidinium-vilan terol (TRELEGY ELLIPTA) 100-62.5-25 mcg Disk with Device Take 1 Puff by inhalation daily. Active empagliflozin (JARDIANCE) 10 mg tablet Take 1 Tablet by mouth daily in the morning. Active insulin degludec (TRESIBA) 100 unit/mL pen syringe Inject 28 Units by subcutaneous injection 1 time daily as needed. AM Active omeprazole (PriLOSEC) 20 mg Capsule, Delayed Release(E.C.) Take 20 mg by mouth daily. AM Active HYDROcodone-eligio taminophen (NORCO) 5-325 mg tabletIndicatio ns:Neck pain Take 1 Tablet by mouth every 4 hours as needed for Pain, Moderate. Max Daily Amount: 6 Tablets 30 Tablet 2 Active Active Problems Problem Noted Date Diagnosed Date Cervical stenosis of spinal canal 08/17/2021 Family History Medical History Relation Name Comments Diabetes Brother Heart Disease Brother Hypertension Brother Diabetes Father No Known Problems Maternal Grandfather No Known Problems Maternal Grandmother Blood Clots Mother Heart Disease Mother Hypertension Mother Other Other 1 Aunt Smoker Other Other 2 Uncle Smoker No Known Problems Paternal Grandfather No Known Problems Paternal Grandmother Other Sister Smoker Relation Name Status Comments Brother Father Maternal Grandfather Maternal Grandmother Mother Other 1 Aunt Alive Other 2 Uncle Alive Paternal Grandfather Paternal Grandmother Sister Social History Tobacco Use Types Packs/Day Years Used Date Smoking Tobacco: Never Smokeless Tobacco: Never Alcohol Use Standard Drinks/Week Comments Yes 0 (1 standard drink = 0.6 oz pur e alcohol) few times a month Sex and Gender Information Value Date Recorded Sex Assigned at Not on file Legal Sex Male 2:28 PM [employer] Gender Identity Not on file Sexual Orientation Not on file Last Filed Vital Signs Vital Sign Reading Time Taken Comments Blood Pressure 139/86 10/17/2021 10:02 AM CDT Pulse 82 10/17/2021 10:02 AM CDT Temperature 36.8 C (98.2 F) 10/17/2021 10:02 AM CDT Respiratory Rate 16 08/17/2021 5:48 PM CDT Oxygen Saturation 98% 08/18/2021 8:59 AM CDT Inhaled Oxygen Concentration - - Weight 79.8 kg (176 lb) 10/17/2021 10:02 AM CDT Height 182.9 cm (6') 10/17/2021 10:02 AM CDT Body Mass Index 23.87 10/17/2021 10:02 AM CDT Plan of Treatment Health Maintenance Due Date Last Done Comments DTAP/TDAP/TD VACCINES (1 - Tdap) 1978 COLORECTAL SCREENING 2004 Colorectal Cancer Screening 2004 FIT-DNA Q 3 years 2004 FIT/FOBT Q 1 year 2004 Flex Sig/CT Colonography Q 5 years 2004 PNEUMOCOCCAL VACCINE 50+ YEARS (1 of 1 - PCV) 04/05/20 09 ZOSTER VACCINE (1 of 2) 2009 RSV VACCINE (60+ or ) (1 - Risk 60-74 years 1-dose series) 2019 INFLUENZA VACCINE (#1) 2024 Medical Devices Implanted Type Area Copy Editor Device Identifier Shelf Expiration Date Model / Serial / Lot Hemostatic Surgiflo 8ml W/ Thrombin 2994 - [id number] Implanted:Qty : 1 on 08/17/2021 by Fitz Fritz MD at [facility] Hemostatic N/A: Spine Cervical Anterior [employer] [id number] 10/19/2022 2994 / / [id number] [place] Plate 44mm Implanted:Qty : 1 on 08/17/2021 by Fitz Fritz MD at [facility] Plate N/A: Spine Cervical Anterior [employer] [id number] / / Description:load # 115 Jul 222021 BOTH NUVASIVE COMPONETS ON REQUISITION# [id number] Screw [place] Mini 4.0x15mm Hex Va Slf Drl [id number] - [id number] Implanted:Qty : 3 on 08/17/2021 by Fitz Fritz MD at [facility] Screw N/A: Spine Cervical Anterior [employer] [id number] / / LOAD # 115 AUG 14, 2021 Allograft Triad Cc Cerv [id number] - [id number] Implanted:Qty : 1 on 08/17/2021 by Fitz Fritz MD at [facility] Tissue N/A: Spine Cervical Anterior [employer] 11/22/2025 [id number] / [id number] / Allograft Triad Cc Cerv [id number] - [id number] Implanted:Qty : 1 on 08/17/2021 by Fitz Fritz MD at [facility] Tissue N/A: Spine Cervical Anterior [employer] 08/31/2025 [id number] / [id number] 1 / Hip Hardware Insurance [facility] BLUE ACCESS/TRUE BLUE PPO Advance Directives For more information, please contact: [phone] * Full Code (Latest Code Status on File) Date Activated Date Inactivated Comments 08/17/2021 5:45 PM 08/18/2021 12:59 PM * Full Code Date Activated Date Inactivated Comments 08/17/2021 12:33 PM 08/17/2021 5:45 PM Care Teams Handle Attacher Relationship Specialty Start Date End Date Lambert Su MD PCP - General Family Practice 08/01/21
--- NOTE | 2024-11-11 14:00 | NEURO_ITS ---
Impression: # Insulin dependent diabetic complains of balance difficulties. ? 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 ? # Needle/EMG exam abnormal with neurogenic changes though no fibs or myotonia. Nerve Conduction Studies ?Stim Site NR Peak (ms) P-T Amp (?V) Site1 Site2 Delta-P (ms) Dist (cm) Scott (m/s) Left Median Anti Sensory (2-3nd Digit) Wrist ? 4.1 9.9 Wrist 2-3nd Digit 4.1 14.0 34 Wrist ? 4.6 19.3 Wrist 2-3nd Digit 4.1 14.0 34 Right Median Anti Sensory (2-3nd Digit) Wrist ? 4.6 5.7 Wrist 2-3nd Digit 4.6 14.0 30 Wrist ? 4.6 4.9 Wrist 2-3nd Digit 4.6 14.0 30 Left Radial Anti Sensory (Base 1st Digit) Wrist ? 2.5 3.8 Wrist Base 1st Digit 2.5 0.0 Right Radial Anti Sensory (Base 1st Digit) Wrist ? 3.3 1.8 Wrist Base 1st Digit 3.3 0.0 Left Sup Fibular Anti Sensory (Ant Lat Mall)??? NO RESPONSE 14 cm NR 14 cm Ant Lat Mall 16.0 Right Sup Fibular Anti Sensory (Ant Lat Mall)??? NO RESPONSE 14 cm NR 14 cm Ant Lat Mall 16.0 Left Sural Anti Sensory (Lat Mall)??? NO RESPONSE Calf NR Calf Lat Mall 16.0 Right Sural Anti Sensory (Lat Mall) Calf ? 3.6 10.1 Calf Lat Mall 3.6 16.0 44 Left Ulnar Anti Sensory (5th Digit) Wrist ? 3.1 24.2 Wrist 5th Digit 3.1 14.0 45 Right Ulnar Anti Sensory (5th Digit) Wrist ? 3.2 8.3 Wrist 5th Digit 3.2 14.0 44 ?Stim Site NR Onset (ms) O-P Amp (mV) Site1 Site2 Delta-0 (ms) Dist (cm) Soctt (m/s) Left Median Motor (Abd Poll Brev) Wrist ? 3.8 4.4 Elbow Wrist 5.9 32.0 54 Elbow ? 9.7 3.9 Right Median Motor (Abd Poll Brev) Wrist ? 4.1 2.0 Elbow Wrist 6.3 31.0 49 Elbow ? 10.4 4.2 Left Peroneal Motor (Vastus Med) Ankle ? 4.9 0.5 Popit Ankle 13.0 37.0 28 Popit ? 17.9 0.5 Right Peroneal Motor (Vastus Med) Ankle ? 4.5 0.9 Popit Ankle 11.8 43.0 36 Popit ? 16.3 0.9 Left Tibial Motor (Abd Sheikh Brev)??? NO RESPONSE Ankle NR Knee Ankle 0.0 Knee NR Right Tibial Motor (Abd Sheikh Brev)??? NO RESPONSE Ankle NR Knee Ankle 0.0 Knee NR Left Ulnar Motor (Abd Dig Minimi) Wrist ? 2.7 3.8 A Elbow Wrist 7.1 33.0 46 A Elbow ? 9.8 2.1 B Elbow Wrist 4.7 24.0 51 B Elbow ? 7.4 1.8 Right Ulnar Motor (Abd Dig Minimi) Wrist ? 2.8 4.0 A Elbow Wrist 8.5 32.0 38 A Elbow ? 11.3 2.1 B Elbow Wrist 5.0 23.0 46 B Elbow ? 7.8 3.0 Electromyography ?Side Muscle Nerve Root Ins Act Fibs Amp Dur Recrt Comment Right 1stDorInt Ulnar C8-T1 Nml Nml Nml >12ms +1 Right Ext Indicis Radial (Post Int) C7-8 Nml Nml Nml >12ms +1 Right Ext Digitorum Radial (Post Int) C7-8 Nml Nml Nml >12ms +1 Right BrachioRad Radial C5-6 Nml Nml Nml >12ms +1 Right PronatorTeres Median C6-7 Nml Nml Nml >12ms +1 Right Abd Poll Brev Median C8-T1 Nml Nml Nml >12ms +1 Right ABD Dig Min Ulnar C8-T1 Nml Nml Nml >12ms +1 Right FlexPolLong Median (Ant Int) C7-8 Nml Nml Nml Nml Nml Right Abd Poll Long Radial (Post Int) C7-8 Nml Nml Nml Nml Nml Right AntTibialis Dp Br Fibular L4-5 Nml Nml Nml >12ms +1 Right Gastroc Tibial S1-2 Nml Nml Nml >12ms +1 Right Fibularis Long Sup Br Fibular L5-S1 Nml Nml Nml >12ms +1 Right Flex Dig Long Tibial L5-S2 Nml Nml Nml >12ms +1 Right Ext Dig Brev Dp Br Fibular L5, S1 Nml Nml Nml >12ms +1 Right QuadratusFem QuadFemoris L4-5, S1 Nml Nml Nml Nml Nml Left AntTibialis Dp Br Fibular L4-5 Nml Nml Nml >12ms +1 Left Gastroc Tibial S1-2 Nml Nml Nml >12ms +1 Left Fibularis Long Sup Br Fibular L5-S1 Nml Nml Nml >12ms +1 Left Flex Dig Long Tibial L5-S2 Nml Nml Nml >12ms +1 Left Ext Dig Brev Dp Br Fibular L5, S1 Nml Nml Nml >12ms +1 Left QuadratusFem QuadFemoris L4-5, S1 Nml Nml Nml Nml Nml Left 1stDorInt Ulnar C8-T1 Nml Nml Nml >12ms +1 Left Ext Indicis Radial (Post Int) C7-8 Nml Nml Nml >12ms +1 Left Ext Digitorum Radial (Post Int) C7-8 Nml Nml Nml >12ms +1 Left BrachioRad Radial C5-6 Nml Nml Nml >12ms +1 Left PronatorTeres Median C6-7 Nml Nml Nml >12ms +1 Left Abd Poll Brev Median C8-T1 Nml Nml Nml >12ms +1 Left ABD Dig Min Ulnar C8-T1 Nml Nml Nml >12ms +1 Left FlexPolLong Median (Ant Int) C7-8 Nml Nml Nml Nml Nml Left Abd Poll Long Radial (Post Int) C7-8 Nml Nml Nml Nml Nml
== END 2024-11-11 12:55 | disposition home or self-care (01) ==
LOC: ANHNEURO 12:55
PROVIDERS: PCP Family Medicine; Visit Provider Family Medicine
DX: R53.1 Weakness (principal); G95.89 Other specified diseases of spinal cord; G62.9 Polyneuropathy, unspecified; R29.6 Repeated falls; R60.0 Localized edema; G56.93 Unspecified mononeuropathy of bilateral upper limbs
CPT/HCPCS: 95886; 95913

== ENCOUNTER 2025-01-21 08:32 | Outpatient (CLI) | payer MEDICARE, SELFPAY ==
--- NOTE | ~2025-01-21 | MR_ITS ---
EXAMINATION: MR cervical spine wo/w con DATE: 01/21/2025 09:49 INDICATION: Neck pain. Repeated falls. TECHNIQUE: Magnetic resonance imaging (MRI) of the cervical spine was performed without and with 15 mL MultiHance intravenous contrast. COMPARISON: Cervical spine MRI 06/21/2021 FINDINGS: There is 2 mm retrolisthesis of C4 on C5. There are changes of anterior fusion procedure from C5 to C7 with interbody bone graft and anterior plate and screws. Vertebral body heights are normal. There is mildly decreased disc height at C4-C5 and C7-T1. There is increased T2-weighted signal intensity in the spinal cord at C5-C6, consistent with myelomalacia. The following disc levels are specifically discussed: C2-C3: The disc does not extend beyond the endplate margin. There is no uncovertebral joint osteoarthritis. There is mild bilateral facet joint osteoarthritis. There is no neural foraminal stenosis. There is no central canal stenosis. C3-C4: There is a central protrusion. There is mild bilateral uncovertebral joint osteoarthritis. There is mild bilateral facet joint osteoarthritis. There is mild right neural foraminal stenosis. There is mild central canal stenosis. C4-C5: The disc is bulging. There is moderate right and mild left uncovertebral joint osteoarthritis. There is mild bilateral facet joint osteoarthritis. There is moderate right and mild left neural foraminal stenosis. There is mild central canal stenosis. C5-C6: There is severe right and moderate left uncovertebral joint hypertrophy. There is mild bilateral facet joint osteoarthritis. There is mild bilateral neural foraminal stenosis. There is mild central canal stenosis. C6-C7: There is moderate bilateral uncovertebral joint hypertrophy. There is moderate bilateral facet joint osteoarthritis. There is mild bilateral neural foraminal stenosis. There is mild central canal stenosis. C7-T1: The disc does not extend beyond the endplate margin. There is no uncovertebral joint osteoarthritis. There is severe right and moderate left facet joint osteoarthritis. There is mild left neural foraminal stenosis. There is no central canal stenosis. IMPRESSION: 1. Moderate cervical spondylosis. 2. Anterior fusion procedure from C5 to C7. 3. Myelomalacia again seen at C5-C6. Reviewed, dictated and finalized at location E.
--- NOTE | ~2025-01-21 | MR_ITS ---
EXAMINATION: MR lumbar spine wo/w con DATE: 01/21/2025 09:35 INDICATION: Polyneuropathy, unspecified. TECHNIQUE: Magnetic resonance imaging (MRI) of the lumbar spine was performed without and with 15 mL MultiHance intravenous contrast. COMPARISON: None FINDINGS: There is 9 degrees levocurvature of thoracolumbar spine. Vertebral body heights are normal. Intervertebral disc heights are normal. The distal spinal cord signal intensity is normal. The conus medullaris is at T12. The following disc levels are specifically discussed: L1-L2: The disc does not extend beyond the endplate margin. There is mild bilateral facet joint osteoarthritis. There is no neural foraminal stenosis. There is no central canal stenosis. L2-L3: The disc is bulging. There is mild bilateral facet joint osteoarthritis. There is mild bilateral neural foraminal stenosis. There is no central canal stenosis. L3-L4: The disc is bulging and has an annular fissure. There is moderate bilateral facet joint osteoarthritis. There is mild bilateral neural foraminal stenosis. There is no central canal stenosis. L4-L5: The disc is bulging and has an annular fissure. There is moderate bilateral facet joint osteoarthritis. There is mild bilateral neural foraminal stenosis. There is mild central canal stenosis. L5-S1: The disc is bulging. There is moderate bilateral facet joint osteoarthritis. There is mild bilateral neural foraminal stenosis. There is mild central canal stenosis. IMPRESSION: 1. Mild lumbar spondylosis. Reviewed, dictated and finalized at location E. IMPRESSION: 1. Mild lumbar spondylosis.
== END 2025-01-21 08:33 | disposition home or self-care (01) ==
PROVIDERS: PCP Family Medicine; Visit Provider Family Medicine
DX: R29.6 Repeated falls (principal); G62.9 Polyneuropathy, unspecified; G95.89 Other specified diseases of spinal cord
CPT/HCPCS: 72156; 72158; A9577